=== PATIENT | male | born 1985 | race Caucasian/White ===

== ENCOUNTER 2017-08-05 11:55 | Emergency (ER) | payer OTHER ==
[2017-08-05 12:03] VITALS: TEMP 97.7
[2017-08-05 12:14] VITALS: BP 134/46; PULSE 65; RESP 12; O2SAT 100
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
== END 2017-08-05 12:43 | disposition home or self-care (01) ==
LOC: ED 11:55
DX: T14.8 Other injury of unspecified body region (principal); V49.9XXA Car occupant (driver) (passenger) injured in unspecified traffic accident, initial encounter